=== PATIENT | female | born 1955 | race Caucasian/White ===

== ENCOUNTER 2017-05-12 08:22 | Inpatient (IN) | payer OTHER ==
[~2017-05-12] VITALS: Ht 160 cm; Wt 87.2 kg
[~2017-05-12 08:22] MED LIST: ASPIRIN PO; DICL100G8 PO; FOLI1TAB47 PO; HYDR-3240 PO; HYDR25TA6 PO; LISI40TA PO; METH750T87 PO; METO25TA35 PO; TRAM50TA2 PO
[2017-05-12 09:01] LABS: BLOOD UREA NITROGEN 16 mg/dL (7-18)
[2017-05-12 09:08] LABS: IS PT STATUS REG ER OR PRE ER? YES
[2017-05-12] MEDS ORDERED: ONDANSETRON 2MG/ML, 2ML IVP PRN (10:00)
[2017-05-12] MEDS ORDERED: NITROGLYCERIN SINGLE TAB 0.4 MG SL PRN (10:00)
[2017-05-12] MEDS ORDERED: morphine SULFATE 10 MG/ML, 1ML IV PRN (10:00)
[2017-05-12] MEDS ORDERED: ACETAMINOPHEN 650 MG/20.3 ML UDC PO PRN (10:00)
[2017-05-12] MEDS ORDERED: ENALAPRILAT 1.25 MG/ML, 2ML IV PRN (10:30)
[2017-05-12] MEDS ORDERED: ASPI-496 PO (11:29)
[2017-05-12] MEDS ORDERED: AMLO5TAB4 PO (11:29)
[2017-05-12 11:59] VITALS: BP 155/93
[2017-05-12] MEDS ORDERED: HEPARIN 5,000 UNITS/ML, 1ML IV PRN (12:30)
[2017-05-12] MEDS ORDERED: HEPARIN 25,000 UNITS/500ML PMX 500 ML IV PRN (12:30)
[2017-05-12] MEDS ORDERED: HEPARIN 5,000 UNITS/ML, 1ML IV ONE (12:30)
[2017-05-12] MEDS ORDERED: NITROGLYCERIN 0.4 MG BOTTLE (25 TABS) SL ONE (14:06)
[2017-05-12 14:30] VITALS: BP 115/82
[2017-05-12 14:58] LABS: IS PT STATUS REG ER OR PRE ER? NO
[2017-05-12 19:51] VITALS: BP 126/83
[2017-05-12 20:18] LABS: IS PT STATUS REG ER OR PRE ER? NO
[2017-05-12] MEDS: SODIUM CHLORIDE FLUSH 10ML SYR IVF SCH (20:24)
[2017-05-13 01:33] VITALS: BP 115/78
[2017-05-13] MEDS ORDERED: ASPIRIN 325 MG TABLET EC PO SCH (06:00)
[2017-05-13 07:51] VITALS: BP 120/73
[2017-05-13] MEDS ORDERED: REGADENOSON 0.4 MG/5 ML SYRINGE ONE (08:04)
[2017-05-13] MEDS ORDERED: HYDROCHLOROTHIAZIDE 12.5 MG CAPSULE PO SCH (09:00)
[2017-05-13] MEDS ORDERED: AMLODIPINE 5 MG TABLET PO SCH (09:00)
[2017-05-13] MEDS: SODIUM CHLORIDE FLUSH 10ML SYR IVF SCH (09:00)
[2017-05-13] MEDS ORDERED: LISINOPRIL 20 MG TABLET PO SCH (09:00)
[2017-05-13] MEDS ORDERED: ATOR40TA78 PO (10:11)
== END 2017-05-13 15:03 | disposition home or self-care (01) | DRG 311 ==
LOC: ED 08:43 → EDIP 09:17 → 5SO 12:02
PROVIDERS: ADMIT Family Medicine; ATTEND Family Medicine
DX: I24.8 Other forms of acute ischemic heart disease (principal); I48.0 Paroxysmal atrial fibrillation; I10 Essential (primary) hypertension; G47.33 Obstructive sleep apnea (adult) (pediatric); G89.29 Other chronic pain; I25.10 Atherosclerotic heart disease of native coronary artery without angina pectoris; E66.9 Obesity, unspecified; E78.5 Hyperlipidemia, unspecified; I25.2 Old myocardial infarction; Z82.49 Family history of ischemic heart disease and other diseases of the circulatory system; Z79.1 Long term (current) use of non-steroidal anti-inflammatories (NSAID); Z79.899 Other long term (current) drug therapy; Z68.34 Body mass index [BMI] 34.0-34.9, adult; Z87.891 Personal history of nicotine dependence
CPT/HCPCS: 36415; 71010; 78452; 80048; 80061; 82040; 83036; 83735; 84443; 84484; 85025; 85520; 85610; 93005; 93017; 93306; 99285; J1644; J2785; A9502; C9898

== ENCOUNTER → 2018-09-10 | Outpatient (CLI) | payer OTHER ==
[~2018-09-10] MED LIST changes: +AMLO5TAB4 PO; +ASPI-496 PO; +ATOR40TA78 PO; +DICL100G19 PO; -DICL100G8 PO
== END | disposition home or self-care (01) ==
LOC: CFH 07:28
PROVIDERS: ATTEND Family Medicine
DX: Z12.31 Encounter for screening mammogram for malignant neoplasm of breast (principal); R94.5 Abnormal results of liver function studies
CPT/HCPCS: 76705; 77067

== ENCOUNTER → 2019-10-02 | Outpatient (CLI) | payer OTHER | END | disposition home or self-care (01) | LOC: CFH 07:47 | PROVIDERS: ATTEND Family Medicine | DX: Z12.31 Encounter for screening mammogram for malignant neoplasm of breast (principal); R94.5 Abnormal results of liver function studies; N64.89 Other specified disorders of breast | CPT/HCPCS: 76705; 77067 ==